=== PATIENT | female | born 2000 | race Caucasian/White ===

== ENCOUNTER 2025-03-21 18:14 | Inpatient (IN) | payer BC ==
[2025-03-21] MEDS ORDERED: Ondansetron 4 MG/2 ML SDV IVPUSH PRN (18:55)
[2025-03-21] MEDS ORDERED: Acetaminophen 325 MG Tab PO PRN (18:55)
[2025-03-21] MEDS ORDERED: Sodium Chloride 0.9% 10 ML Syringe FLUSH PRN (18:55)
[2025-03-21] MEDS ORDERED: Nalbuphine 10 MG/1 ML Vial IVPUSH PRN (18:55)
[2025-03-21] MEDS ORDERED: Calcium Carbonate 500 MG Tab.Chew PO PRN (18:55)
[2025-03-21] MEDS ORDERED: Lidocaine 1% 50 ML MDV INJECT PRN (18:55)
[2025-03-21 19:11] LABS: BASOPHILS PERCENT AUTO 0.3 % (0.0-1.0); EOSINOPHILS ABSOLUTE AUTO 0.1 K/mm3 (0.0-0.4); EOSINOPHILS PERCENT AUTO 0.6 % (0.0-6.0); HEMATOCRIT 34.8 % (37.0-47.0); HEMOGLOBIN 12.2 gm/dl (12.0-16.0); IMMATURE GRAN ABSOLUTE AUTO 0.11 K/mm3 (0.00-0.05); IMMATURE GRAN PERCENT AUTO 0.9 % (0.0-0.4); LYMPHOCYTES PERCENT AUTO 25.8 % (24.0-44.0); MEAN CORPUSCULAR HEMOGLOBIN 32.5 pg (28.0-32.0); MEAN CORPUSCULAR HGB CONC 35.1 g/dl (32.0-36.0); MEAN CORPUSCULAR VOLUME 92.8 fl (83.0-99.0); MEAN PLATELET VOLUME 8.6 fl (9.4-12.3); MONOCYTES ABSOLUTE AUTO 0.8 K/mm3 (0.0-0.8); MONOCYTES PERCENT AUTO 7.2 % (0.0-8.0); NEUTROPHILS ABSOLUTE AUTO 7.6 K/mm3 (1.8-7.7); NEUTROPHILS PERCENT AUTO 65.2 % (41.0-71.0); PLATELET COUNT,PLT 204 K/mm3 (150-400); RED BLOOD CELL COUNT 3.75 M/mm3 (4.10-5.30); WHITE BLOOD CELL COUNT,WBC 11.65 K/mm3 (3.9-11.3)
[2025-03-21] MEDS: Oxytocin/0.9 % Sodium Chloride 30 UNIT/500 ML BAG IV SCH (21:00)
[2025-03-21] MEDS: Lactated Ringers 1,000 ML IV SCH (21:00)
[2025-03-22] MEDS ORDERED: ePHEDrine 50 MG/ML SDV IVPUSH PRN (06:02)
[2025-03-22] MEDS ORDERED: diphenhydrAMINE 50 MG/ML SDV IVPUSH PRN (06:02)
[2025-03-22] MEDS: Bupivacaine/fentaNYL/NS 100 ML Bag EPIDUR PRN (06:27)
[2025-03-22] MEDS: fentaNYL 100 MCG/2 ML SDV EPIDUR PRN (06:29)
[2025-03-22] MEDS ORDERED: Methylergonovine 0.2 MG/1 ML Amp ONE (09:04)
[2025-03-22] MEDS: Methylergonovine 0.2 MG/1 ML Amp IM STA (09:07)
[2025-03-22] MEDS: Oxytocin/0.9 % Sodium Chloride 30 UNIT/500 ML BAG IV SCH (09:17)
[2025-03-22] MEDS ORDERED: Acetaminophen 325 MG Tab PO PRN (10:44)
[2025-03-22] MEDS ORDERED: Benzocaine/Menthol 20%-0.5% Spray 78 GM Cannister TOP PRN (10:44)
[2025-03-22] MEDS ORDERED: Witch Hazel Medicated Pads 40/Jar TOP PRN (10:44)
[2025-03-23] MEDS: Ibuprofen 600 MG Tab PO SCH (01:13)
[2025-03-23] MEDS ORDERED: Ibuprofen 600 MG Tab PO SCH (07:00)
[2025-03-23] MEDS ORDERED: Bupivacaine 0.25% 10 ML SDV ONE (07:00)
[2025-03-23] MEDS ORDERED: Sodium Bicarbonate 8.4% 50 MEQ/50 ML SDV ONE (07:00)
== END 2025-03-23 12:10 | disposition home or self-care (01) | DRG 560 ==
LOC: JD.OBCHECK 18:14 → JD.OB 18:17 → JD.OBCHECK 18:56 → JD.OB 18:56 → OBSVTOIN 03-22 08:57 → JD.OB 03-22 08:58
PROVIDERS: ADMIT Obstetrics & Gynecology; ATTEND Obstetrics & Gynecology
PROC: 10E0XZZ Delivery of Products of Conception, External Approach (ICD-10-PCS; principal; 2025-03-22)
PROC: 4A1HXCZ Monitoring of Products of Conception, Cardiac Rate, External Approach (ICD-10-PCS; 2025-03-22)
PROC: 3E0R3BZ Introduction of Anesthetic Agent into Spinal Canal, Percutaneous Approach (ICD-10-PCS; 2025-03-22)
PROC: 00HU33Z Insertion of Infusion Device into Spinal Canal, Percutaneous Approach (ICD-10-PCS; 2025-03-22)
DX: O42.02 Full-term premature rupture of membranes, onset of labor within 24 hours of rupture (principal); Z3A.37 37 weeks gestation of pregnancy; Z37.0 Single live birth; O69.81X0 Labor and delivery complicated by cord around neck, without compression, not applicable or unspecified
CPT/HCPCS: 01967; 36415; 51702; 59025; 59409; 84112; 85025; 86592; 86850; 86900; 86901; A9270-GY; J0665; J2210; J3010; J3490; J7120; J7999